=== PATIENT | female | born 1970 | race Asian ===

== ENCOUNTER 2018-09-09 09:17 | Emergency (ER) | payer BC ==
[~2018-09-09] VITALS: Ht 152.4 cm; Wt 40.8 kg
[2018-09-09 09:17] VITALS: BP_SYST 90
[2018-09-09 10:23] VITALS: BP_SYST 90
== END 2018-09-09 10:23 | disposition home or self-care (01) ==
LOC: SED 09:17
DX: F41.9 Anxiety disorder, unspecified (principal); Z90.710 Acquired absence of both cervix and uterus
CPT/HCPCS: 99284